=== PATIENT | male | born 1985 | race African-American/Black ===

== ENCOUNTER 2017-10-02 23:19 | Emergency (ER) | payer OTHER ==
--- NOTE | 2017-10-02 23:36 | CPEKG ---
Heart Rate: 66 RR Interval: 909 P-R Interval: 160 QRSD Interval: 92 QT Interval: 384 QTC Interval: 403 P [place]: 50 QRS [place]: 66 T Wave [place]: 63 EKG Severity - BORDERLINE ECG - EKG Impression: SINUS RHYTHM EKG Impression: VENTRICULAR PREMATURE COMPLEX Electronically Signed By: Niurka Soto 03-Oct-2017 05:47:40
[2017-10-02 23:56] LABS: PLATELET COUNT 221 10^3/uL (150-400)
[2017-10-03 00:19] VITALS: BP 132/86
--- NOTE | 2017-10-03 00:31 | EDPHY ---
H & P Stated Complaint: heart "skipping a beat" and dizzy since tuesday Time Seen by Provider: 10/02/17 23:29 HPI/ROS: HPI The patient presents with palpitations which began today while sitting at a coffee shop. He had drink several cups of coffee. He usually does not drink this much coffee. They have been ongoing throughout the course of the day, not getting any worse, though brought him into the emergency department. He says 3 days ago he was feeling somewhat unwell with a funny sensation in his throat. This past. He has had intermittent dizziness today. This is been mild. He has had no prior history of similar. He does not have a history of syncope. He does have a father who had an MD in his 50s or 60s. He feels well currently.. REVIEW OF SYSTEMS Constitutional: No fever, no chills. Eyes: No discharge. ENT: No sore throat. Cardiovascular: No chest pain, positive for palpitations. Respiratory: No cough, no shortness of breath. Gastrointestinal: No abdominal pain, no vomiting. Genitourinary: No hematuria. Musculoskeletal: No back pain. Skin: No rashes. Neurological: No headache. PMHx: Healthy Soc Hx: Student PHYSICAL General Appearance: Alert, no distress Eyes: Pupils equal and round no pallor or injection ENT, Mouth: Mucous membranes moist Respiratory: There are no retractions, lungs are clear to auscultation Cardiovascular: Regular rate and rhythm Gastrointestinal: Abdomen is soft and non-tender, no masses, bowel sounds normal Neurological: A&O, moves all extremities Skin: Warm and dry, no rashes Musculoskeletal: Neck is supple non tender Extremities: symmetrical, full range of motion Psychiatric: Patient is oriented X 3, there is no agitation Source: Patient Exam Limitations: No limitations - Personal History Current Tetanus/Diphtheria Vaccine: Yes - Medical/Surgical History Hx Asthma: No Hx Chronic Respiratory Disease: No Hx Diabetes: No Hx Cardiac Disease: No Hx Renal Disease: No Hx Cirrhosis: No Hx Alcoholism: No Hx HIV/AIDS: No Hx Splenectomy or Spleen Trauma: No Other PMH: denies - Social History Smoking Status: Never smoked Constitutional: Initial Vital Signs Temperature (C) 36.6 C 10/02/17 23:20 Heart Rate 59 L 10/02/17 23:20 Respiratory Rate 16 10/02/17 23:20 Blood Pressure 155/75 H 10/02/17 23:20 O2 Sat (%) 99 10/02/17 23:20 O2 Delivery Mode Room Air Allergies/Adverse Reactions: amoxicillin Allergy (Verified 10/02/17 23:22) Home Medications: Medication Instructions Recorded NK [No Known Home Meds] 10/02/17 Medical Decision Making - Diagnostics EKG Interpretation: EKG: Complete interpretation has been separately recorded in the [facility] archive. Summary impression: PVC present Imaging Results: Chest x-ray two view shows no cardiomegaly, no infiltrate, no effusion, interpreted by me, radiology interpretation is pending. Imaging: I viewed and interpreted images myself Differential Diagnosis: This is a 32-year-old healthy male who presents from home with several hours of palpitations in the setting of increased caffeine use. Also the patient has started an exercise challenge about 1 month ago and has been exercising daily and more strenuously than usual. EKG and telemetry monitoring here reveal occasional PVCs with no episodes of ventricular tachycardia. I suspect his symptoms are from PVCs, ventricular tachycardia is also a consideration from underlying structural heart disease. However, history suggests that he is low risk for any structural heart disease. Atrial fibrillation is also a consideration. Patient was monitored here on telemetry with no events. Chest x-ray was normal. Basic labs including troponin were normal. He felt well enough to go home. I have advised him to monitor his caffeine use, drink plenty of fluids, avoid exercising if he is feeling palpitations. I will refer him to Cardiology for further evaluation of his symptoms are ongoing. He is happy with this plan. - Data Points Laboratory Results: Laboratory Results 10/02/17 23:44 10/02/17 23:44 10/02/17 10/02/17 10/02/17 23:52 23:44 23:44 WBC 10.37 10^3/uL H 10^3/uL (3.80-9.50) RBC 5.96 10^6/uL 10^6/uL (4.40-6.38) Hgb 13.4 g/dL L g/dL (13.7-17.5) Hct 42.3 % % (40.0-51.0) MCV 71.0 fL L fL (81.5-99.8) MCH 22.5 pg L pg (27.9-34.1) MCHC 31.7 g/dL L g/dL (32.4-36.7) RDW 15.8 % H % (11.5-15.2) Plt Count 221 10^3/uL 10^3/uL (150-400) MPV 11.6 fL fL (8.7-11.7) Neut % (Auto) 65.3 % % (39.3-74.2) Lymph % (Auto) 24.8 % % (15.0-45.0) [place] % (Auto) 8.2 % % (4.5-13.0) Eos % (Auto) 0.8 % % (0.6-7.6) Baso % (Auto) 0.6 % % (0.3-1.7) Nucleat RBC Rel Count 0.0 % % (0.0-0.2) Absolute Neuts (auto) 6.78 10^3/uL H 10^3/uL (1.70-6.50) Absolute Lymphs (auto) 2.57 10^3/uL 10^3/uL (1.00-3.00) Absolute Monos (auto) 0.85 10^3/uL H 10^3/uL (0.30-0.80) Absolute Eos (auto) 0.08 10^3/uL 10^3/uL (0.03-0.40) Absolute Basos (auto) 0.06 10^3/uL 10^3/uL (0.02-0.10) Absolute Nucleated RBC 0.00 10^3/uL 10^3/uL (0-0.01) Immature Gran % 0.3 % % (0.0-1.1) Immature Gran # 0.03 10^3/uL 10^3/uL (0.00-0.10) Sodium 141 mEq/L mEq/L (135-145) Potassium 4.0 mEq/L mEq/L (3.3-5.0) Chloride 106 mEq/L mEq/L (97-110) Carbon Dioxide 28 mEq/l mEq/l (22-31) Anion Gap 7 mEq/L L mEq/L (8-16) BUN 13 mg/dL mg/dL (7-23) Creatinine 1.0 mg/dL mg/dL (0.7-1.3) Estimated GFR > 60 Glucose 81 mg/dL mg/dL (70-100) Calcium 10.0 mg/dL mg/dL (8.5-10.4) Magnesium 2.1 mg/dL mg/dL (1.6-2.3) POC Troponin I 0.00 ng/mL ng/mL (0.00-0.08) NT-Pro-B Natriuret Pep 14 pg/mL pg/mL (0-125) Point of Care Test Results: Chemistry 10/02/17 23:52 POC Troponin I 0.00 ng/mL ng/mL (0.00-0.08) Departure - Departure Disposition: Home, Routine, Self-Care Clinical Impression: PVC (premature ventricular contraction) Condition: Good Instructions: Premature Ventricular Contractions (ED) Additional Instructions: Please return to the emergency department if your worse in any way. I recommend you drink plenty of fluids, avoid excessive caffeine use, alcohol use. If your symptoms continue, I recommend that you see Dr. Harp in the next few days. I have listed his contact information below. Referrals: Alon Harp MD [Medical Doctor] - As per Instructions
== END 2017-10-03 00:58 | disposition home or self-care (01) ==
DX: I49.3 Ventricular premature depolarization (principal)
CPT/HCPCS: 84484-PO